=== PATIENT | male | born 1965 | race Caucasian/White ===

== ENCOUNTER 2020-01-18 09:23 | Outpatient (REF) | payer OTHER, SELFPAY ==
[2020-01-18 11:20] LABS: Glucose Fasting 118 mg/dL (60-99)
[2020-01-18 11:27] LABS: Estimated Average Glucose 131 mg/dL; Hemoglobin A1c % 6.2 %
== END 2020-01-18 09:24 | disposition home or self-care (01) ==
LOC: HO.HMGCLDS 09:23
PROVIDERS: PCP Family Medicine; Visit Provider Family Medicine
DX: R73.9 Hyperglycemia, unspecified (principal)
CPT/HCPCS: 82947; 83036

== ENCOUNTER 2020-07-25 10:23 | Outpatient (REF) | payer OTHER, SELFPAY ==
[2020-07-25 11:48] LABS: Estimated Average Glucose 163 mg/dL; Hemoglobin A1c % 7.3 %
[2020-07-25 12:05] LABS: Creatinine Urine 146.91 mg/dL
[2020-07-25 12:10] LABS: Alanine Aminotransferase 36 U/L (0-40); Anion Gap 16 (12-20); Blood Urea Nitrogen 21 mg/dL (9-16); Carbon Dioxide 23 mmol/L (22-29); Chloride 105 mmol/L (96-108); Estimated Glomerular Filt Rate > 60; Glucose Fasting 172 mg/dL (60-99); Potassium 4.4 mmol/L (3.3-5.1); Sodium 140 mmol/L (135-145)
== END 2020-07-25 10:24 | disposition home or self-care (01) ==
LOC: HO.HMGCLDS 10:23
PROVIDERS: PCP Family Medicine; Visit Provider Family Medicine
DX: I10 Essential (primary) hypertension (principal); E78.00 Pure hypercholesterolemia, unspecified; E11.9 Type 2 diabetes mellitus without complications; Z79.899 Other long term (current) drug therapy
CPT/HCPCS: 36415; 80051; 82043; 82550; 82565; 82947; 83036; 84460; 84520

== ENCOUNTER 2021-01-16 10:55 | Outpatient (REF) | payer OTHER, SELFPAY ==
[2021-01-16 12:17] LABS: Anion Gap 13 (12-20); Blood Urea Nitrogen 21 mg/dL (9-16); Carbon Dioxide 27 mmol/L (22-29); Chloride 107 mmol/L (96-108); Estimated Glomerular Filt Rate > 60; Glucose Fasting 126 mg/dL (60-99); Potassium 4.5 mmol/L (3.3-5.1); Sodium 142 mmol/L (135-145)
[2021-01-16 12:23] LABS: Estimated Average Glucose 131 mg/dL; Hemoglobin A1c % 6.2 %
== END 2021-01-16 10:56 | disposition home or self-care (01) ==
LOC: HO.HMGCLDS 10:55
PROVIDERS: PCP Family Medicine; Visit Provider Family Medicine
DX: E11.9 Type 2 diabetes mellitus without complications (principal); I10 Essential (primary) hypertension
CPT/HCPCS: 36415; 80051; 82565; 82947; 83036; 84520

== ENCOUNTER 2021-07-27 09:50 | Outpatient (REF) | payer OTHER, SELFPAY ==
[2021-07-27 11:33] LABS: Alanine Aminotransferase 29 U/L (0-40); Anion Gap 12 (12-20); Blood Urea Nitrogen 18 mg/dL (9-16); Carbon Dioxide 29 mmol/L (22-29); Chloride 104 mmol/L (96-108); Estimated Glomerular Filt Rate > 60; Glucose Fasting 122 mg/dL (60-99); Potassium 4.9 mmol/L (3.3-5.1); Sodium 140 mmol/L (135-145)
[2021-07-27 11:55] LABS: Estimated Average Glucose 120 mg/dL; Hemoglobin A1C 152.6605 umol/L; Hemoglobin A1c % 5.8 %
[2021-07-27 11:58] LABS: Microalbumin Urine < 5.0 mg/L
== END 2021-07-27 09:51 | disposition home or self-care (01) ==
LOC: HO.HMGCLDS 09:50
PROVIDERS: PCP Family Medicine; Visit Provider Family Medicine
DX: I10 Essential (primary) hypertension (principal); E11.9 Type 2 diabetes mellitus without complications; E78.00 Pure hypercholesterolemia, unspecified; Z79.899 Other long term (current) drug therapy
CPT/HCPCS: 36415; 80051; 82043; 82550; 82565; 82947; 83036; 84460; 84520

== ENCOUNTER 2021-10-10 11:00 | Outpatient (REF) | payer OTHER, SELFPAY ==
[2021-10-10 12:14] LABS: COVID-19 Test Negative (Negative)
== END 2021-10-10 11:01 | disposition home or self-care (01) ==
LOC: HO.LAB 11:00
PROVIDERS: Visit Provider Internal Medicine
DX: Z20.822 Contact with and (suspected) exposure to COVID-19 (principal)
CPT/HCPCS: 87635; C9803

== ENCOUNTER 2022-01-29 06:28 | Outpatient (REF) | payer OTHER, SELFPAY ==
[2022-01-29 11:47] LABS: Estimated Average Glucose 114 mg/dL; Hemoglobin A1c % 5.6 %
[2022-01-29 12:20] LABS: Alanine Aminotransferase 24 U/L (0-40); Anion Gap 15 (12-20); Aspartate Amino Transferase 22 U/L (5-37); Blood Urea Nitrogen 20 mg/dL (9-16); Carbon Dioxide 26 mmol/L (22-29); Chloride 103 mmol/L (96-108); Estimated Glomerular Filt Rate > 60; Glucose Fasting 106 mg/dL (60-99); Sodium 140 mmol/L (135-145)
[2022-01-29 12:27] LABS: Creatinine Urine 86.03 mg/dL; Microalbumin Urine < 5.0 mg/L
== END 2022-01-29 06:29 | disposition home or self-care (01) ==
LOC: HO.HMGCLDS 06:28
PROVIDERS: PCP Family Medicine; Visit Provider Family Medicine
DX: I10 Essential (primary) hypertension (principal); E11.9 Type 2 diabetes mellitus without complications; E78.00 Pure hypercholesterolemia, unspecified; Z79.899 Other long term (current) drug therapy
CPT/HCPCS: 36415; 80051; 82043; 82550; 82565; 82947; 83036; 84450; 84460; 84520

== ENCOUNTER 2022-10-12 09:02 | Outpatient (REF) | payer OTHER, SELFPAY ==
[2022-10-12 12:01] LABS: Creatinine Urine 61.64 mg/dL; Microalbumin Urine < 5.0 mg/L
== END 2022-10-12 09:03 | disposition home or self-care (01) ==
LOC: HO.HMGCLDS 09:02
PROVIDERS: PCP Family Medicine; Visit Provider Family Medicine
DX: I10 Essential (primary) hypertension (principal); E78.00 Pure hypercholesterolemia, unspecified; E11.9 Type 2 diabetes mellitus without complications; Z79.899 Other long term (current) drug therapy
CPT/HCPCS: 36415; 80051; 82043; 82550; 82565; 82947; 83036; 84450; 84460; 84520

== ENCOUNTER 2023-07-24 10:38 | Outpatient (REF) | payer OTHER, SELFPAY ==
[2023-07-24 13:45] LABS: Estimated Average Glucose 252 mg/dL; Hemoglobin A1c % 10.4 % (<6.0)
[2023-07-24 14:26] LABS: Alanine Aminotransferase 29 U/L (0-40); Anion Gap 12 (12-20); Aspartate Amino Transferase 36 U/L (5-37); Blood Urea Nitrogen 15 mg/dL (9-16); Carbon Dioxide 26 mmol/L (22-29); Chloride 102 mmol/L (96-108); Estimated Glomerular Filt Rate > 60; Glucose Fasting 268 mg/dL (60-99); Potassium 4.5 mmol/L (3.3-5.1); Sodium 135 mmol/L (135-145)
[2023-07-24 14:30] LABS: Creatinine Urine 154.95 mg/dL; Microalbum/Creatinine Ratio Ur 12.2 ug/mg cr (<30)
== END 2023-07-24 10:39 | disposition home or self-care (01) ==
LOC: HO.HMGCLDS 10:38
PROVIDERS: PCP Family Medicine; Visit Provider Psychiatry & Neurology Psychiatry
DX: I10 Essential (primary) hypertension (principal); E11.9 Type 2 diabetes mellitus without complications; E78.00 Pure hypercholesterolemia, unspecified; Z79.899 Other long term (current) drug therapy
CPT/HCPCS: 36415; 80051; 82043; 82550; 82565; 82570; 82947; 83036; 84450; 84460; 84520

== ENCOUNTER 2023-11-22 07:50 | Outpatient (REF) | payer OTHER, SELFPAY ==
[2023-11-22 10:32] LABS: Glucose Fasting 201 mg/dL (60-99)
[2023-11-22 10:49] LABS: Estimated Average Glucose 249 mg/dL; Hemoglobin A1c % 10.3 % (<6.0)
[2023-11-22 11:48] LABS: Creatinine Urine 97.58 mg/dL; Microalbum/Creatinine Ratio Ur 7.1 ug/mg cr (<30)
== END 2023-11-22 07:51 | disposition home or self-care (01) ==
LOC: HO.HMGCLDS 07:50
PROVIDERS: PCP Family Medicine; Visit Provider Family Medicine
DX: E11.9 Type 2 diabetes mellitus without complications (principal)
CPT/HCPCS: 36415; 82043; 82570; 82947; 83036

== ENCOUNTER 2024-07-28 10:43 | Outpatient (REF) | payer OTHER, SELFPAY ==
[2024-07-28 13:44] LABS: Estimated Average Glucose 163 mg/dL; Hemoglobin A1C 207.7428 umol/L; Hemoglobin A1c % 7.3 % (<6.0); Total Hemoglobin (HGBA1C) 3664.9711 umol/L
[2024-07-28 14:05] LABS: Creatinine Urine 142.89 mg/dL; Microalbum/Creatinine Ratio Ur 6.2 ug/mg cr (<30)
[2024-07-28 14:23] LABS: Alanine Aminotransferase 37 U/L (0-40); Anion Gap 13 (12-20); Aspartate Amino Transferase 45 U/L (5-37); Blood Urea Nitrogen 19 mg/dL (9-16); Carbon Dioxide 27 mmol/L (22-29); Chloride 104 mmol/L (96-108); Cholesterol 132 mg/dL (<200); Estimated Glomerular Filt Rate > 60; Glucose Fasting 175 mg/dL (60-99); HDL Cholesterol 34 mg/dL (>40); LDL Cholesterol Calculated 68 mg/dL (<100); Potassium 4.5 mmol/L (3.3-5.1); Sodium 139 mmol/L (135-145); Triglycerides 151 mg/dL (<150)
== END 2024-07-28 10:44 | disposition home or self-care (01) ==
LOC: HO.HMGCLDS 10:43
PROVIDERS: PCP Family Medicine; Visit Provider Family Medicine
DX: I10 Essential (primary) hypertension (principal); E11.9 Type 2 diabetes mellitus without complications; E78.00 Pure hypercholesterolemia, unspecified
CPT/HCPCS: 36415; 80051; 80061; 82043; 82550; 82565; 82570; 82947; 83036; 84450; 84460; 84520

== ENCOUNTER 2024-12-30 15:08 | Outpatient (AMB) | payer OTHER, SELFPAY ==
--- NOTE | 2024-12-30 15:07 | MHC.PC.OV ---
Vital Signs 12/30/24 15:10 Height 5 ft 9 in Weight 110.223 kg BMI 35.9 BP 118/76 Blood Pressure Location Lt brachial Position Sitting Respiration 18 Pulse 65 Pulse Source Pulse Oximeter Temp 97.8 F Temp Source Temporal Artery Scan Pulse Oximetry (%) 98 Oxygen Delivery Method Room Air Intake Visit Reasons: 4 MO F/UP - ANNA PT Pediatric Pathologist Required: No Accompanied by: Self / Same As Patient Allergies No Known Allergies Allergy (Verified 12/30/24 15:08) Medication List - Last Reconciled 12/30/24 by SHAILESH Yang allopurinol 300 mg PO DAILY 30 days atorvastatin (Lipitor) 20 mg PO DAILY 30 days betamethasone dipropionate 0.05% appl topical BID fexofenadine (Mirian Allergy) 180 mg PO DAILY metformin 1,000 mg PO DAILY 30 days metoprolol succinate ER 25 mg PO DAILY 30 days sertraline 50 mg PO DAILY Tobacco use date assessed: 12/30/24 Dental Screening Dental Screen Date: 12/30/24 Did you have a dental visit in the last 12 months?: Yes Did you have a dental problem in the last 6 months where you did not have access to dental care?: No Was dental information given to patient?: Patient has dentist HPI HPI Comments History of Present Illness Details 59-year-old male with history of type 2 diabetes, hypertension, anxiety, hyperlipidemia, gout, obesity presenting to the office today for management of chronic conditions and to establish care. Previous PCP Dr. Faith, last seen 08/2024 Type 2 diabetes-last A1c improved to 7.3%, due for updated A1c. Compliant with metformin 100 mg daily. Feels he is overall compliant with diabetic diet. Annual eye exams HTN-BP in the office 118/76. Compliant with metoprolol 25 mg ER HLD-on atorvastatin 20 mg daily. Last LDL 68 Anxiety/Depression- stable on sertraline 50mg daily. passive si several times a month but has no active thoughts or plan. Does not find the intrusive thoughts bothersome. Does not have a counselor. PHQ-9 score 5, giana 7 score 2 Gout-no flare since starting allopurinol 300 mg daily Obesity-class 2 with BMI 35.9. No longer exercising. Reports he could be following a healthier diet Concerns: None Health maintenance: Due for PSA Last colonoscopy 11/2018 with 10 year follow-up advised-sessile polyp. Dr. Medina ROS: General: No fevers, malaise, unintentional weight loss HEENT: No blurred vision, diplopia. No sore throat, nasal congestion, rhinorrhea, sinus pain, ear pain Cardiovascular: No chest pain, palpitations, or leg edema Respiratory: No shortness of breath, wheezing, cough GI: No abdominal pain, nausea, vomiting, diarrhea, constipation, melena, hematochezia : No dysuria, hematuria, increased urinary frequency, decreased urinary output MSK: No myalgia, back pain Neuro: No headaches, weakness, paresthesias Psych: see hpi Skin: No rashes or lesions EXAM: Constitutional - Awake and Alert, No apparent distress Eyes - PERRL Cardiovascular - S1S2, RRR, No edema Respiratory - Normal lung expansion, Normal respiratory effort, No respiratory distress, CTA bilaterally Extremities - no calf tenderness bilaterally, no swelling Skin - Warm/Dry Neurological - Alert & oriented x3 Psychological - Appropriate affect [facility] Medical History (Updated 12/30/24 @ 15:41 by SHAILESH Yang) Depression with anxiety Obesity HLD (hyperlipidemia) HTN (hypertension) Type 2 diabetes mellitus Social History Housing: House Patient Tobacco Use Status: Never used Tobacco e-Cigarette/Vaping Use: Never Used Second Hand Smoke Exposure: No service: No Current occupational status: employed Current occupation: [employer] Questionnaire PHQ-9 Over the last 2 weeks, how often have you been bothered by any of the following problems? 1. Little interest or pleasure in doing things: several days 2. Feeling down, depressed, or hopeless: not at all 3. Trouble falling or staying asleep, or sleeping too much: several days 4. Feeling tired or having little energy: not at all 5. Poor appetite or overeating: several days 6. Feeling bad about yourself - or that you are a failure or have let yourself or your family down: not at all 7. Trouble concentrating on things, such as reading the newspaper or watching television: several days 8. Moving or speaking so slowly that other people could have noticed. Or the opposite - being so fidgety or restless that you have been moving around a lot more than usual: not at all 9. Thoughts that you would be better off or of hurting yourself in some way: several days Total score: 5 Depression Screening Interpretation: Positive Depression Screening Done: Yes 45736 - PHQ-9 Billing: Yes Source: Developed by Drs. Jermain Richardson, Zeferino Beck and colleagues, with an educational thierry from [employer]. AUDIT C Alcohol Use Questionnaire (AUDIT-C) 1. How often do you have a drink containing alcohol?: Never 3. How often do you have six or more drinks on one occasion?: Never Total Score: 0 GIANA-7 AMB Questionnaire GIANA-7 Feeling nervous, anxious, or on edge: 0 = Not at all Not being able to stop or control worryin = Not at all Worrying too much about different things: 1 = Several days Trouble relaxin = Not at all Being so restless that it is hard to sit still: 0 = Not at all Becoming easily annoyed or irritable: 0 = Not at all Feeling afraid as if something awful might happen: 0 = Not at all Total GIANA-7 score (0-4 normal; 5-9 mild; 10-14 moderate; 15-21 severe): 1 Source: Developed by Drs. Jermain Richardson, Jodee Lucero, Zeferino Delgado and colleagues, with an educational thierry from [employer]. GIANA-7 Assessment Billing GIANA-7 Assessment Tool: GIANA-7 Assessment 15612 Physical exam (Primary Care) Vital Signs: Last Vital Signs Temp 97.8 F 12/30/24 15:10 Pulse 65 12/30/24 15:10 Resp 18 12/30/24 15:10 BP 118/76 12/30/24 15:10 Pulse Ox 98 12/30/24 15:10 Oxygen Delivery Method Room Air 12/30/24 15:10 BMI result Body Mass Index 35.9 Tobacco/Smoking Status: Tobacco use Status Tobacco use date assessed 12/30/24 12/30/24 15:15 Patient Tobacco Use Status Never used Tobacco 12/30/24 15:15 e-Cigarette/Vaping Use Never Used 12/30/24 15:15 Depression Screening Interpretation: Positive Coding Level of Care Code New Pt Level 4 (85785) Complex EM visit Add On G2211 Diagnoses Depression with anxiety F41.8 Passive suicidal ideations R45.851 HTN (hypertension) I10 HLD (hyperlipidemia) E78.5 Type 2 diabetes mellitus E11.9 Obesity E66.9 Additional Codes PHQ-9 - 10605 - PHQ-9 Billing: Yes ([id number]) GIANA-7 Assessment Billing - GIANA-7 Assessment Tool: GIANA-7 Assessment 64936 ([id number]) Assessment & Plan Assessment & Plan (1) Depression with anxiety: Code(s): F41.8 - Other specified anxiety disorders Category: Medical Plan: Stable. Continue sertraline 50 mg daily (2) Passive suicidal ideations: Code(s): R45.851 - Suicidal ideations Category: Medical Plan: No active thoughts or plan. He is not concerned at this time. We will continue sertraline, should symptoms worsen, advised to contact the office or present to the ER. (3) HTN (hypertension): Code(s): I10 - Essential (primary) hypertension Category: Medical Plan: Controlled. Continue metoprolol 25 mg ER (4) HLD (hyperlipidemia): Code(s): E78.5 - Hyperlipidemia, unspecified Category: Medical Plan: Lipid panel ordered. Continue atorvastatin (5) Type 2 diabetes mellitus: Code(s): E11.9 - Type 2 diabetes mellitus without complications Category: Medical Plan: Hemoglobin A1c ordered. Continue metformin, improved diabetic diet. Annual eye exams (6) Obesity: Code(s): E66.9 - Obesity, unspecified Category: Medical Plan: Counseled on weight loss efforts. Encouraged patient to continue improving diet and engage in exercise Plan Follow-up in the office in 3 months, labs to be completed following visit today Orders: Orders Basic Metabolic Panel Today E11.9 - Type 2 diabetes mellitus without complications, E66.9 - Obesity, unspecified, E78.5 - Hyperlipidemia, unspecified, I10 - Essential (primary) hypertension Complete Blood Count Auto Diff Today E11.9 - Type 2 diabetes mellitus without complications, E66.9 - Obesity, unspecified, E78.5 - Hyperlipidemia, unspecified, I10 - Essential (primary) hypertension Lipid Panel Today E11.9 - Type 2 diabetes mellitus without complications, E66.9 - Obesity, unspecified, E78.5 - Hyperlipidemia, unspecified, I10 - Essential (primary) hypertension Prostate Specific Antigen Today E11.9 - Type 2 diabetes mellitus without complications, E66.9 - Obesity, unspecified, E78.5 - Hyperlipidemia, unspecified, I10 - Essential (primary) hypertension Hemoglobin A1c Today E11.9 - Type 2 diabetes mellitus without complications, E66.9 - Obesity, unspecified, E78.5 - Hyperlipidemia, unspecified, I10 - Essential (primary) hypertension Liver Panel Today E11.9 - Type 2 diabetes mellitus without complications, E66.9 - Obesity, unspecified, E78.5 - Hyperlipidemia, unspecified, I10 - Essential (primary) hypertension Medications: Changed From metformin 1,000 mg PO DAILY 30 days 30 tabs 0RF To metformin 1,000 mg PO DAILY 90 tabs 1RF 90 days From atorvastatin (Lipitor) 20 mg PO DAILY 30 days 30 tabs 0RF To atorvastatin (Lipitor) 20 mg PO DAILY 90 tabs 1RF 90 days From metoprolol succinate ER 25 mg PO DAILY 30 days 30 tabs 0RF To metoprolol succinate ER 25 mg PO DAILY 90 tabs 1RF 90 days From allopurinol 300 mg PO DAILY 30 days 30 tabs 0RF To allopurinol 300 mg PO DAILY 90 tabs 1RF 90 days Refilled sertraline 50 mg PO DAILY 90 tabs 1RF
[2024-12-30 15:10] VITALS: BP 118/76; PULSE 65; RESP 18; TEMP 36.6; O2SAT 98; BMI 35.9
--- OUTSIDE RECORDS SUMMARY | 2024-12-30 17:36 | XMS_ITS | Patient Health Record ---
[facility] Address [address] [place] [address] Care Team Providers Care Workflow Developer Name Role Phone Marcell BYERS, Moy Primary Care Provider UnavailSilvino Pierce Unavailable [phone] Allergies Allergen (clinical drug ingredient) Drug/Non Drug Allergy documented on EMR Reaction Allergy Type Onset Date Status Seasonal allergies (uncoded) sneezing Allergy Active Reason For Referral No Information Medications Medication SIG (Take, Route, Frequency, Duration) Notes Start Date End Date Status Atorvastatin Calcium 20 MG 1 tablet Oral ly Once a day Active Allopurinol 300 MG 1 tablet Orally Once a day Active Social History Tobacco Use: Social History Observation Description Date Details (start date - stop date) Never Smoker NA - NA Tobacco Use/Smoking Question Answer Notes Are you a: nonsmoker Additional Findings: Tobacco Non-User Current no n-smoker Alcohol Screen Question Answer Notes Did you have a drink containing alcohol in the p ast year? No Points 0 Interpretation Negative Tobacco use other than smoking: Question Answer Notes Are you an other tobacco user? No Plan Of Treatment Pending Test Test Name Order Date X ray : Foot, left 3V 07/24/2017 [id number] Plate 07/24/2017 [id number] 06/27/2018 [id number] SKIN/TISSUE 07/10/2018 Insurance Providers Payer Name Payer Address Payer Phone Subscriber Number Group Number Insured Name Patient Relationship to Insured Coverage Start Date Coverage End Date [facility] [address] [place] [address] [id number] [place] Self - patient is the insured Medical (General) History Medical History History ICD Code Gout Psoriasis Warts Chicken pox CAD Surgical History Surgery Date(Month/Year)
--- OUTSIDE RECORDS SUMMARY | 2024-12-30 17:36 | XMS_ITS | Patient Health Record ---
Author Organization [facility] Address [address] [place] [address] Care Team Providers Care Senior Benefits Specialist Name Role Phone Marcell (RETIRED) Moy BYERS Primary Care Provider Unavailable Jermain Medina Unavailable [phone] Allergies Allergen (clinical drug ingredient) Drug/Non Drug Allergy documented on EMR Reaction Allergy Type Onset Date Status seasonal (uncoded) Unknown Allergy A ctive Reason For Referral No Information Medications Medication SIG (Take, Route, Fr equency, Duration) Notes Start Date End Date Status Lipitor 20 MG 1 tablet Orally Once a day for 30 day(s) Active Allopurinol 300 MG 1 tablet Orally Once a day Active Immunizations Vaccine Route Administration Date Status Comme nts Influenza Unknown 01/20/2018 Administered Social History Tobacco Use: Social History Observation Description Date Details (start date - stop date) Never Smoker NA - NA Tobacco Use/Smoking Question Answer Notes Patient is a nonsmoker Alcohol Screen Question Answer Notes Did you have a drink containing alcohol in the p ast year? No Points 0 Interpretation Negative Section Notes: Nonsmoker; no alcohol Problems Problem Type SNOMED Code ICD Code Onset Dates Problem Status W/U Status Risk Notes Problem 977668638 Encounter for screening for malignant neoplasm of colon (Z12.11) Active confirmed Problem [id number] Pre-procedural examination (Z01.818) Active confirmed Plan Of Treatment Pending Test Test Name Order Date GI BIOPSY 11/24/2018 Future Test Test Name Order Date COLONOSCOPY 05/14/2018 Insurance Providers Payer Name Payer Address Payer Phone Subscriber Number Group Number Insured Name Patient Relationship to Insured Coverage Start Date Coverage End Date [facility] [address] [facility] [phone] [id number] ERA WILSON Self - patient is the insured Medical (General) History Medical History History ICD Code Denies [place],DM,CVA,Lung disease,renal dise ase Gout Hyperlipidemia Surgical History Surgery Date(Month/Year) Eye surgery Tonsillectomy
== END 2024-12-30 15:34 | disposition home or self-care (01) ==
LOC: HO.HMCHD 15:08
PROVIDERS: PCP Physician Assistant; Visit Provider Physician Assistant
DX: F41.8 Other specified anxiety disorders (principal); R45.851 Suicidal ideations; I10 Essential (primary) hypertension; E78.5 Hyperlipidemia, unspecified; E11.9 Type 2 diabetes mellitus without complications; E66.9 Obesity, unspecified

== ENCOUNTER → 2024-12-30 15:08 | Outpatient (BNVA) | payer OTHER, SELFPAY | PROVIDERS: PCP Physician Assistant; Visit Provider Physician Assistant | DX: Z76.89 Persons encountering health services in other specified circumstances (principal); E11.9 Type 2 diabetes mellitus without complications; F41.8 Other specified anxiety disorders; R45.851 Suicidal ideations; I10 Essential (primary) hypertension; E78.5 Hyperlipidemia, unspecified; E66.812 Obesity, class 2; Z68.35 Body mass index [BMI] 35.0-35.9, adult; M10.9 Gout, unspecified; Z79.84 Long term (current) use of oral hypoglycemic drugs; Z79.899 Other long term (current) drug therapy; Z13.31 Encounter for screening for depression | CPT/HCPCS: 96127 ==

== ENCOUNTER 2025-03-12 06:51 | Outpatient (REF) | payer OTHER, SELFPAY ==
--- OUTSIDE RECORDS SUMMARY | 2025-03-12 06:54 | XMS_ITS | Patient Health Record ---
Author Organization [facility] Address [address] [place] [address] Care Team Providers Care Lithograph Press Feeder Name Role Phone Marcell (RETIRED) Moy BYERS Primary Care Provider Unavailable Jermain Medina Unavailable [phone] Allergies Allergen (clinical drug ingredient) Drug/Non Drug Allergy documented on EMR Reaction Allergy Type Onset Date Status seasonal (uncoded) Unknown Allergy A ctive Reason For Referral No Information Medications Medication SIG (Take, Route, Frequency, Duration) Notes Start Date End Date Status Lipitor 20 MG Tablet 1 tablet Orally Onc e a day; Duration: 30 day(s) Active Allopurinol 300 MG Tablet 1 tablet Orally Once a day Active Immunizations Vaccine Route Administration Date Status Comme nts Influenza Unknown 01/20/2018 Administered Social History Tobacco Use: Social History Observation Description Date Details (start date - stop date) Never Smoker NA - NA Social History Drugs/Alcohol: Social Info Question Answer Notes Alcohol Screen Did you have a drink containing alcohol in the past year? 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 Notes: Nonsmoker; no alcohol Problems Problem Type SNOMED Code ICD Code Onset Dates Problem Status W/U Status Risk Notes Problem Screening for malignant neoplasm of colon (446040307) Encounter for screening for malignant neoplasm of colon (Z12.11) Active confirmed Problem Pre-procedure evaluation check (589219079) Pre-procedural examination (Z01.818) Active confirmed Plan Of Treatment Pending Test Test Name Order Date GI BIOPSY 11/24/2018 Future Test Test Name Order Date COLONOSCOPY 05/14/2018 Insurance Providers Payer Name Payer Address Payer Phone Subscriber Number Group Number Insured Name Patient Relationship to Insured Coverage Start Date Coverage End Date [facility] [address] [place] [phone] [id number] ERA WILSON Self - patient is the insured Medical (General) History Medical History History ICD Code Denies [place],DM,CVA,Lung disease,renal dise ase Gout Hyperlipidemia Surgical History Surgery Date(Month/Year) Eye surgery Tonsillectomy
[2025-03-12 10:13] LABS: MANUAL DIFF FLAG NO
[2025-03-12 10:20] LABS: Hematocrit 40.4 % (42.0-52.0); Hemoglobin 13.1 g/dl (14.0-18.0); Imm Gran Abs Auto 0.02 X10*3/uL (0.00-0.03); Imm Gran Pct Auto 0.2 % (0.0-0.4); Lymphocytes Absolute Auto 2.3 X10*3/uL (1.2-4.9); Mean Corpuscular HGB Conc 32.4 g/dl (31.0-36.0); Mean Corpuscular Hemoglobin 30.9 pg (27.0-33.0); Mean Corpuscular Volume 95.3 fL (80.0-98.0); NRBC Abs Auto 0.000 X10*3/uL (0.0-0.012); NRBC Pct Auto 0.0 /100WBC (0.0-0.2); Platelet Count 248 X10*3/uL (160-400); Red Blood Count 4.24 X10*6/uL (4.60-5.80); White Blood Count 8.3 X10*3/uL (4.8-10.8)
[2025-03-12 10:39] LABS: Alanine Aminotransferase 28 U/L (0-40); Albumin Level 4.5 g/dL (3.5-5.0); Alkaline Phosphatase 58 U/L (39-117); Anion Gap 9 (12-20); Aspartate Amino Transferase 31 U/L (5-37); Blood Urea Nitrogen 22 mg/dL (9-16); Calcium 9.5 mg/dL (8.4-10.2); Carbon Dioxide 28 mmol/L (22-29); Chloride 107 mmol/L (96-108); Cholesterol 125 mg/dL (<200); Estimated Glomerular Filt Rate > 60; HDL Cholesterol 33 mg/dL (>40); Potassium 4.4 mmol/L (3.3-5.1); Sodium 140 mmol/L (135-145); Total Protein 7.9 g/dL (6.5-8.0); Triglycerides 105 mg/dL (<150)
[2025-03-12 10:57] LABS: Prostate Specific Antigen 0.25 ng/mL (<0.05-4.0)
== END 2025-03-12 06:52 | disposition home or self-care (01) ==
LOC: HO.HMGCLDS 06:51
PROVIDERS: PCP Physician Assistant; Visit Provider Physician Assistant
DX: Z12.5 Encounter for screening for malignant neoplasm of prostate (principal); I10 Essential (primary) hypertension; E11.9 Type 2 diabetes mellitus without complications; E78.5 Hyperlipidemia, unspecified; E66.9 Obesity, unspecified
CPT/HCPCS: 36415; 80048; 80061; 80076; 83036; 84153; 85025

== ENCOUNTER 2025-03-24 16:05 | Outpatient (AMB) | payer OTHER, SELFPAY ==
--- NOTE | 2025-03-24 16:10 | A.OFFPC_ITS ---
Vital Signs 03/24/25 16:13 Height 5 ft 9 in Weight 111.811 kg BMI 36.4 BP 114/60 Respiration 16 Pulse 73 Pulse Source Pulse Oximeter Temp 97.6 F Temp Source Temporal Artery Scan Pulse Oximetry (%) 98 Oxygen Delivery Method Room Air Intake Visit Reasons: 3 Month F/U Waiver Analyst Required: No Accompanied by: Self / Same As Patient Allergies No Known Allergies Allergy (Verified 03/24/25 16:11) Medication List - Last Reconciled 03/24/25 by SHAILESH Yang allopurinol 300 mg PO DAILY 90 days atorvastatin (Lipitor) 20 mg PO DAILY 90 days betamethasone dipropionate 0.05% appl topical BID fexofenadine (Mirian Allergy) 180 mg PO DAILY metformin 1,000 mg PO BID 90 days metoprolol succinate ER 25 mg PO DAILY 90 days sertraline 50 mg PO DAILY Tobacco use date assessed: 12/30/24 Dental Screening Dental Screen Date: 12/30/24 HPI HPI Comments History of Present Illness Details 59-year-old male with history of type 2 diabetes, hypertension, anxiety, hyperlipidemia, gout, obesity presenting to the office today for management of chronic conditions and to establish care. Previous PCP Dr. Faith, last seen 08/2024 Type 2 diabetes-last A1c improved to 7.3%, due for updated A1c. Compliant with metformin 1000 mg daily. Fasting glucose 130-160. Feels he is overall compliant with diabetic diet. Annual eye exams, Dr. Nichole, has bilateral cataracts HTN-BP in the office 114/60. Compliant with metoprolol 25 mg ER HLD-on atorvastatin 20 mg daily. Last LDL 71 Anxiety/Depression- stable on sertraline 50mg daily. Gout-no flare since starting allopurinol 300 mg daily Obesity-class 2 with BMI 36.4. No longer exercising. Reports he could be following a healthier diet Concerns: None Health maintenance: PSA UTD Last colonoscopy 11/2018 with 10 year follow-up advised-sessile polyp. Dr. Medina Flu vax 12/2024 ROS: see hpi EXAM: Constitutional - Awake and Alert, No apparent distress Eyes - PERRL Cardiovascular - S1S2, RRR, No edema Respiratory - Normal lung expansion, Normal respiratory effort, No respiratory distress, CTA bilaterally Extremities - no calf tenderness bilaterally, no swelling Skin - Warm/Dry Neurological - Alert & oriented x3 Psychological - Appropriate affect [facility] Medical History (Updated 12/30/24 @ 15:41 by SHAILESH Yang) Depression with anxiety Obesity HLD (hyperlipidemia) HTN (hypertension) Type 2 diabetes mellitus Social History Housing: House Patient Tobacco Use Status: Never used Tobacco e-Cigarette/Vaping Use: Never Used Second Hand Smoke Exposure: No service: No Current occupational status: employed Current occupation: [employer] Physical exam (Primary Care) Vital Signs: Last Vital Signs Temp 97.6 F 03/24/25 16:13 Pulse 73 03/24/25 16:13 Resp 16 03/24/25 16:13 BP 114/60 03/24/25 16:13 Pulse Ox 98 03/24/25 16:13 Oxygen Delivery Method Room Air 03/24/25 16:13 BMI result Body Mass Index 36.4 Tobacco/Smoking Status: Tobacco use Status Tobacco use date assessed 12/30/24 03/24/25 16:15 Patient Tobacco Use Status Never used Tobacco 03/24/25 16:15 e-Cigarette/Vaping Use Never Used 03/24/25 16:15 Coding Level of Care Code Est Pt Level 4 (42756) Add On Problem Visit Only Diagnoses Depression with anxiety F41.8 HTN (hypertension) I10 HLD (hyperlipidemia) E78.5 Type 2 diabetes mellitus E11.9 Obesity E66.9 Assessment & Plan Assessment & Plan (1) Depression with anxiety: Code(s): F41.8 - Other specified anxiety disorders Category: Medical Plan: Stable. Continue sertraline 50 mg daily (2) HTN (hypertension): Code(s): I10 - Essential (primary) hypertension Category: Medical Plan: Controlled. Continue metoprolol 25 mg ER (3) HLD (hyperlipidemia): Code(s): E78.5 - Hyperlipidemia, unspecified Category: Medical Plan: Lipid panel ordered. Continue atorvastatin, currently at goal (4) Type 2 diabetes mellitus: Code(s): E11.9 - Type 2 diabetes mellitus without complications Category: Medical Plan: Remains uncontrolled. Increase metformin to 1000 mg twice daily. Counseled on diabetic diet, declines referral to dietitian. Continue with annual eye exams (5) Obesity: Code(s): E66.9 - Obesity, unspecified Category: Medical Plan: Counseled on weight loss efforts. Encouraged patient to continue improving diet and engage in exercise Plan Follow-up in the office in 3 months, labs to be completed prior to visit Orders: Orders Basic Metabolic Panel 3 Months E11.9 - Type 2 diabetes mellitus without complications, E78.5 - Hyperlipidemia, unspecified, I10 - Essential (primary) hypertension Hemoglobin A1c 3 Months E11.9 - Type 2 diabetes mellitus without complications, E78.5 - Hyperlipidemia, unspecified, I10 - Essential (primary) hypertension Microalbumin, Random (w Creat) 3 Months E11.9 - Type 2 diabetes mellitus without complications, E78.5 - Hyperlipidemia, unspecified, I10 - Essential (primary) hypertension Medications: Changed From metformin 1,000 mg PO DAILY 90 days 90 tabs 1RF To metformin 1,000 mg PO BID 180 tabs 1RF 90 days
[2025-03-24 16:13] VITALS: BP 114/60; PULSE 73; RESP 16; TEMP 36.4; O2SAT 98; BMI 36.4
--- OUTSIDE RECORDS SUMMARY | 2025-03-24 20:49 | XMS_ITS | Patient Health Record ---
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: Nonsmoker; no alcohol Problems Problem Type SNOMED Code ICD Code Onset Dates Problem Status W/U Status Risk Notes Problem Screening for malignant neoplasm of colon (158022383) Encounter for screening for malignant neoplasm of colon (Z12.11) Active confirmed Problem Pre-procedure evaluation check (230062376) Pre-procedural examination (Z01.818) Active confirmed Plan Of Treatment Pending Test Test Name Order Date GI BIOPSY 11/24/2018 Future Test Test Name Order Date COLONOSCOPY 05/14/2018 Insurance Providers Payer Name Payer Address Payer Phone Subscriber Number Group Number Insured Name Patient Relationship to Insured Coverage Start Date Coverage End Date [facility] [address] [place] [phone] [id number] ERA WILSON Self - patient is the insured Medical (General) History Medical History History ICD Code Denies [place],DM,CVA,Lung disease,renal dise ase Gout Hyperlipidemia Surgical History Surgery Date(Month/Year) Eye surgery Tonsillectomy
--- OUTSIDE RECORDS SUMMARY | 2025-03-24 20:49 | XMS_ITS | Patient Health Record ---
Author [facility] Address [address] [place] [address] Care Team Providers Care Digital Learning Platforms Manager Name Role Phone Marcell BYERS, Moy Primary Care Provider UnavailSilvino Pierce Unavailable [phone] Allergies Allergen (clinical drug ingredient) Drug/Non Drug [...] X ray : Foot, left 3V 07/24/2017 [id number] Plate 07/24/2017 [id number] 06/27/2018 [id number] SKIN/TISSUE 07/10/2018 Insurance Providers Payer Name Payer Address Payer Phone Subscriber Number Group Number Insured Name Patient Relationship to Insured Coverage Start Date Coverage End Date [facility] [address] [place] [address] [id number] [place] Self - patient is the insured Medical (General) History Medical History History ICD Code Gout Psoriasis Warts Chicken pox CAD Surgical History Surgery Date(Month/Year)
== END 2025-03-24 16:40 | disposition home or self-care (01) ==
PROVIDERS: PCP Physician Assistant; Visit Provider Physician Assistant
DX: F41.8 Other specified anxiety disorders (principal); I10 Essential (primary) hypertension; E78.5 Hyperlipidemia, unspecified; E11.9 Type 2 diabetes mellitus without complications; E66.9 Obesity, unspecified